=== PATIENT | female | born 1955 | race Caucasian/White ===

== ENCOUNTER 2017-09-05 20:49 | Inpatient (IN) | payer OTHER ==
[~2017-09-05] VITALS: Ht 152.4 cm; Wt 96.7 kg
[2017-09-05] MEDS ORDERED: ALBUTEROL/IPRATROPIUM 2.5MG/0.5MG, 3 ML ONE (22:12)
[2017-09-05] MEDS ORDERED: ASPI-496 PO (22:20)
[2017-09-05] MEDS ORDERED: CARV6.2512 PO (22:20)
[2017-09-05] MEDS ORDERED: FLUT1DIS3 INH (22:20)
[2017-09-05] MEDS ORDERED: PANT40TA5 PO (22:20)
[2017-09-05] MEDS ORDERED: ZAFI20TA12 PO (22:20)
[2017-09-05] MEDS ORDERED: SODIUM CHLORIDE 0.9% 1,000ML IVBOLUS ONE (22:30)
[2017-09-05 23:12] LABS: RAPID INFLUENZA A Negative (Negative); RAPID INFLUENZA B Negative (Negative)
[2017-09-05 23:14] LABS: BLOOD UREA NITROGEN 7 mg/dL (7-18); HEMATOCRIT 33.7 % (34.6-47.8); HEMOGLOBIN 10.7 g/dL (11.7-16.4); WHITE BLOOD COUNT 7.3 x10^3/uL (3.4-10)
[2017-09-05 23:19] LABS: IS PT STATUS REG ER OR PRE ER? YES
[2017-09-05] MEDS ORDERED: ALBUTEROL 0.5%, 20ML ONE (23:21)
[2017-09-05] MEDS ORDERED: ALBUTEROL 0.5%, 20ML NPPB SCH (23:30)
[2017-09-06] MEDS ORDERED: OMNIPAQUE 350 MG/ML, 100ML BOTTLE ONE (00:16)
[2017-09-06] MEDS ORDERED: SODIUM CHLORIDE 0.9% 1,000 ML IV ONE (00:39)
[2017-09-06] MEDS ORDERED: ONDANSETRON 2MG/ML, 2ML IVPush PRN (01:00)
[2017-09-06] MEDS ORDERED: SODIUM CHLORIDE 0.9% 1,000 ML IV SCH (01:34)
[2017-09-06] MEDS ORDERED: GUAIFENESIN/DM 200-20MG, 10ML UDC PO PRN (02:00)
[2017-09-06] MEDS ORDERED: ACETAMINOPHEN 325 MG TABLET PO PRN (02:00)
[2017-09-06] MEDS ORDERED: DOCUSATE 100 MG CAPSULE PO PRN (02:00)
[2017-09-06] MEDS ORDERED: BISACODYL 10 MG SUPP PR PRN (02:00)
[2017-09-06] MEDS ORDERED: HEPARIN 5,000 UNITS/ML, 1ML SQ SCH (02:00)
[2017-09-06 02:07] VITALS: BP 147/80
[2017-09-06] MEDS ORDERED: ENOXAPARIN 80 MG/0.8 ML SQ SCH (02:30)
[2017-09-06] MEDS: DOXYCYCLINE 100 MG in DEXTROSE 5% 250 ML IV SCH ×2 (02:39→14:34)
[2017-09-06] MEDS ORDERED: ALBUTEROL/IPRATROPIUM 2.5MG/0.5MG, 3 ML NPPB SCH (03:00)
[2017-09-06 03:07] LABS: ABG COLLECTION SITE RIGHT RADIAL; COLLATERAL CIRCULATION TESTING NORMAL
[2017-09-06 03:25] LABS: IS PT STATUS REG ER OR PRE ER? NO
[2017-09-06 06:33] LABS: ASPARTATE AMINO TRANSFERASE 16 U/L (15-37); BLOOD UREA NITROGEN 8 mg/dL (7-18); TOTAL IRON BINDING CAPACITY 410 mcg/dL (250-450)
[2017-09-06 06:40] LABS: IS PT STATUS REG ER OR PRE ER? NO
[2017-09-06] MEDS: ALBUTEROL/IPRATROPIUM 2.5MG/0.5MG, 3 ML NPPB SCH ×4 (06:43→20:00)
[2017-09-06 07:12] LABS: HEMATOCRIT 30.3 % (34.6-47.8); HEMOGLOBIN 9.8 g/dL (11.7-16.4)
[2017-09-06] MEDS: ASPIRIN 325 MG TABLET PO SCH (08:25)
[2017-09-06] MEDS: FERROUS SULFATE 325 MG TABLET PO SCH ×2 (08:26→17:58)
[2017-09-06 08:30] VITALS: BP 106/61
[2017-09-06] MEDS ORDERED: methylPREDNISolone SOD SUCC 125 MG/2 ML IVPush SCH (09:00)
[2017-09-06] MEDS ORDERED: FUROSEMIDE 20 MG/2 ML IV ONE (09:00)
[2017-09-06] MEDS ORDERED: ALBUTEROL/IPRATROPIUM 2.5MG/0.5MG, 3 ML ONE (09:01)
[2017-09-06] MEDS ORDERED: ENALAPRILAT 1.25 MG/ML, 2ML IV PRN (09:30)
[2017-09-06] MEDS: GUAIFENESIN/COD200MG-20MG/10ML LIQUID PO SCH ×4 (09:30→21:12)
[2017-09-06] MEDS: INSULIN ASPART 100 UNITS/ML, PEN SQ-INSULIN SCH ×3 (11:00→21:19)
[2017-09-06] MEDS: methylPREDNISolone SOD SUCC 125 MG/2 ML IVPush SCH ×3 (12:06→21:12)
[2017-09-06 12:30] LABS: IS PT STATUS REG ER OR PRE ER? NO
[2017-09-06] MEDS: ENOXAPARIN 100 MG/ML SQ SCH (14:34)
[2017-09-06 14:38] VITALS: BP 118/69
[2017-09-06] MEDS: POTASSIUM CHLORIDE 20 MEQ TAB.ER.PRT PO SCH (17:58)
[2017-09-06 19:35] VITALS: BP 122/73
[2017-09-06] MEDS: ATORVASTATIN 40 MG TABLET PO SCH (21:11)
[2017-09-07] MEDS: GUAIFENESIN/COD200MG-20MG/10ML LIQUID PO SCH ×5 (01:30→20:11)
[2017-09-07 02:09] VITALS: BP 142/69
[2017-09-07] MEDS: DOXYCYCLINE 100 MG in DEXTROSE 5% 250 ML IV SCH (02:14)
[2017-09-07] MEDS ORDERED: ENOXAPARIN 80 MG/0.8 ML SQ SCH (02:30)
[2017-09-07] MEDS: methylPREDNISolone SOD SUCC 125 MG/2 ML IVPush SCH ×2 (04:38→10:21)
[2017-09-07] MEDS: ENOXAPARIN 100 MG/ML SQ SCH (04:38)
[2017-09-07 05:37] LABS: HEMATOCRIT 31.7 % (34.6-47.8)
[2017-09-07 05:50] LABS: BLOOD UREA NITROGEN 16 mg/dL (7-18)
[2017-09-07] MEDS: ALBUTEROL/IPRATROPIUM 2.5MG/0.5MG, 3 ML NPPB SCH ×4 (06:00→19:32)
[2017-09-07] MEDS: INSULIN ASPART 100 UNITS/ML, PEN SQ-INSULIN SCH ×4 (07:00→20:15)
[2017-09-07 08:13] VITALS: BP 125/73
[2017-09-07] MEDS: ASPIRIN 325 MG TABLET PO SCH (08:39)
[2017-09-07] MEDS: POTASSIUM CHLORIDE 20 MEQ TAB.ER.PRT PO SCH (08:39)
[2017-09-07] MEDS: FERROUS SULFATE 325 MG TABLET PO SCH ×2 (08:40→16:58)
[2017-09-07 13:28] VITALS: BP 132/80
[2017-09-07 14:53] VITALS: BP 152/68
[2017-09-07] MEDS: DOXYCYCLINE 100MG TABLET PO SCH (20:11)
[2017-09-07] MEDS: ATORVASTATIN 40 MG TABLET PO SCH (20:11)
[2017-09-07 20:22] VITALS: BP 134/77
[2017-09-08] MEDS: ALBUTEROL/IPRATROPIUM 2.5MG/0.5MG, 3 ML NPPB SCH ×3 (00:05→11:16)
[2017-09-08] MEDS: GUAIFENESIN/COD200MG-20MG/10ML LIQUID PO SCH ×4 (01:15→13:24)
[2017-09-08 02:29] VITALS: BP 118/75
[2017-09-08] MEDS: INSULIN ASPART 100 UNITS/ML, PEN SQ-INSULIN SCH ×2 (07:00→11:00)
[2017-09-08 08:40] VITALS: BP 112/77
[2017-09-08] MEDS ORDERED: PRED20TA PO (09:11)
[2017-09-08] MEDS ORDERED: DOXY100T PO (09:11)
[2017-09-08] MEDS: DOXYCYCLINE 100MG TABLET PO SCH (09:39)
[2017-09-08] MEDS: FERROUS SULFATE 325 MG TABLET PO SCH (09:39)
[2017-09-08] MEDS: ASPIRIN 325 MG TABLET PO SCH (09:40)
[2017-09-08] MEDS ORDERED: IPRA3AMP INH (13:08)
== END 2017-09-08 14:40 | disposition home or self-care (01) | DRG 193 ==
LOC: ED 09-06 01:05 → EDIP 09-06 01:10 → 5SO 09-06 02:04 → DCLOUNGE 09-08 12:55
PROVIDERS: ADMIT Surgery; ATTEND Internal Medicine
DX: J18.9 Pneumonia, unspecified organism (principal); J96.21 Acute and chronic respiratory failure with hypoxia; E87.1 Hypo-osmolality and hyponatremia; E44.1 Mild protein-calorie malnutrition; J44.0 Chronic obstructive pulmonary disease with (acute) lower respiratory infection; J44.1 Chronic obstructive pulmonary disease with (acute) exacerbation; Z68.41 Body mass index [BMI] 40.0-44.9, adult; I48.91 Unspecified atrial fibrillation; I10 Essential (primary) hypertension; R00.0 Tachycardia, unspecified; R73.9 Hyperglycemia, unspecified; E87.6 Hypokalemia; D50.9 Iron deficiency anemia, unspecified
CPT/HCPCS: 36415; 36600; 71010; 71275; 80048; 80053; 80061; 81003; 82040; 82803; 82962; 83036; 83540; 83550; 83605; 83735; 83880; 84100; 84145; 84443; 84484; 85025; 85379; 87040; 87400; 93005; 93306; 94640; 94644; 99285; J1650; J1815; J7060; J7620; Q9967; J1940; J2930; J7030; J7512